=== PATIENT | male | born 1960 | race Caucasian/White ===

== ENCOUNTER 2022-08-05 09:32 | Day surgery (SDC) | payer OTHER, SELFPAY ==
[2022-05-23 11:13] VITALS: BMI 23.9
[2022-07-23 09:17] VITALS: BMI 23.8
--- NOTE | 2022-07-23 09:18 | PC.NURSE ---
DISCUSSED NO SOLID FOODS DAY BEFORE SURGERY, Friday08/04/22. PT STATED THE PAPERWORK FROM DR LANDEROS'S OFFICE SAID STARTING AT 1500. EXPLAINED SEVERAL TIMES THE PREP STARTS AT 1500, BUT NO SOLID FOODS ON THE DAY BEFORE PROCEDURE. ALSO DISCUSSED HIS DIABETIC MEDS AND CHECKING BLOOD SUGARS. NO DIABETIC MEDS DOS. INSTRUCTED PT SEVERAL TIMES TO CALL DR BROWN OFFICE WITH FURTHER QUESTIONS REGARDING PREP. PT VERBALIZED UNDERSTANDING.
--- NOTE | 2022-08-02 13:02 | WPDANESEPPF ---
Anes - Initial Pre Proc Eval Procedure: Operation Date: 08/05/22 11:30 Proposed Procedures p Screening Colonoscopy - Jordi Fagan MD Date/Time: 08/02/22 13:02 Surgeon: Jordi Fagan MD Pre Op Diagnosis: Neoplasm Screening Patient Data Age: 62 Gender: M Height: 1.75 m Weight: 73 kg Allergies Allergy/AdvReac Type Severity Reaction Status Date / Time No Known Allergies Allergy Verified 08/05/22 10:18 Home Medications Medication Instructions Recorded Confirmed Type sildenafil 100 mg tablet See Rx Instructions .Route 03/19/22 08/05/22 Rx .COMPLEX #30 tabs blood sugar diagnostic (OneTouch #300 ea 06/26/22 08/05/22 Rx Verio test strips) insulin glargine-yfgn 100 unit/mL 14 unit (0.14 mL) subcut QPM 90 06/26/22 08/05/22 Rx (3 mL) subcutaneous pen (Semglee days #15 mL (insulin glargine-yfgn) Pen) insulin lispro 100 unit/mL See Rx Instructions subcut BID 90 06/26/22 08/05/22 Rx subcutaneous pen (Humalog KwikPen days #5 syringes (U-100) Insulin) lancets 33 gauge (OneTouch Delica #300 ea 06/26/22 08/05/22 Rx Lancets) metformin 500 mg tablet,extended 1,000 mg PO BID 90 days #360 tabs 06/26/22 08/05/22 Rx release 24 hr pen needle, diabetic 32 gauge x #300 ea 06/26/22 08/05/22 Rx 5/32 (BD Marybeth 2nd Gen Pen Needle) ibuprofen 200 mg tablet 200 mg PO Q6H PRN JOINT PAIN 07/23/22 08/05/22 History Patient hx anesthesia problems: none Family hx anesthesia problems: none Results Review: All pre-operative results and documents have been reviewed as part of the pre-operative evaluation. [facility] Past Medical History Medical History Body mass index (BMI) 24.0-24.9, adult Controlled diabetes mellitus with hyperglycemia, without long-term current use of insulin Dyslipidemia Erectile dysfunction Surgical History Surgical History History of arthroscopy of left shoulder 2015 - labral tear repair History of hip replacement (~08/2017) right History of left hip replacement (~08/30/21) Family History Family History Other Diabetes mellitus Family history of cardiovascular disease Family history of coronary artery disease Hypertension Social History Social History Smoking status: Never smoker Alcohol intake: current Drinks per week: 2 Substance use: never Substance use type: does not use Living arrangements: alone Additional living arrangements comments: Daughter Occupation/Education: occupation Gender identity (if verbalized by the patient): Male Spiritual care concerns: No Anes - Eval Final PreProcedure Day of Procedure 08/02/22 13:02 Patient weight: normal Heart: regular rate and rhythm Lungs: clear to auscultation and normal air movement Airway: Mallampati scale class II Neurological: alert and oriented Last oral intake: >/= 8 hours ASA classification: III Emergent: no Anesthetic plan: proceed Anesthesia type and monitoring: general GIVS and standard monitoring Results Review: All pre-operative results and documents have been reviewed as part of the pre-operative evaluation. Informed Consent: The patient's anesthetic plan and its attendant risks and benefits were discussed with the patient/family/POA. Questions were solicited and answers provided to the satisfaction of the patient/family/POA.
[2022-08-05 10:15] VITALS: BP 131/90; PULSE 77; RESP 20; TEMP 36.5; O2SAT 100
[2022-08-05] MEDS: LACTATED RINGERS 1,000 ML 150 ML IV CONT (10:35)
[2022-08-05 10:36] LABS: Glucose Point of Care 170 mg/dl (65-105)
--- NOTE | 2022-08-05 10:47 | PM.HPGS ---
History of Present Illness History of Present Illness Consent: Risks, benefits, and alternatives have been discussed and questions answered. Patient agrees to proceed with procedure. Chief complaint: Neoplasm Screening Narrative: Gareth Landaverde is a 62 year old male here for first screening colonoscopy Review of Systems Constitutional: Constitutional: Denies headache(s) and Denies weakness Eyes: Eyes: Denies blurry vision ENT: Reports Normal hearing present, Denies headache(s) and Denies neck pain Cardiovascular: Cardiovascular: Denies chest pain and Denies dyspnea Respiratory: Respiratory: Denies dyspnea Gastrointestinal: Gastrointestinal: Reports no additional gastrointestinal complaints Genitourinary: Genitourinary: Denies dysuria Musculoskeletal: Musculoskeletal: Denies neck pain Integumentary/Breasts: Skin/Breast: Denies dry skin Neurologic: Reports Normal hearing present, Denies headache(s) and Denies weakness Psychiatric: Psychiatric: Denies anxiety Endocrine: Endocrine: Denies change in body appearance Hematologic/Lymphatic: Hematologic/Lymphatic: Denies easy bleeding Allergic/Immunologic: Allergic/Immunologic: Denies urticaria [facility] Past Medical History Medical History (Updated 08/05/22 @ 10:48 by Jordi Fagan MD) Body mass index (BMI) 24.0-24.9, adult Colon cancer screening Controlled diabetes mellitus with hyperglycemia, without long-term current use of insulin Dyslipidemia Erectile dysfunction Surgical History Surgical History History of arthroscopy of left shoulder 2015 - labral tear repair History of hip replacement (~08/2017) right History of left hip replacement (~08/30/21) Family History Family History Other Diabetes mellitus Family history of cardiovascular disease Family history of coronary artery disease Hypertension Social History Social History Smoking status: Never smoker Alcohol intake: current Drinks per week: 2 Substance use: never Substance use type: does not use Living arrangements: alone Additional living arrangements comments: Daughter Occupation/Education: occupation Gender identity (if verbalized by the patient): Male Spiritual care concerns: No Meds Home Medications and Allergies Home Medications Medication Instructions Recorded Confirmed Type sildenafil 100 mg tablet See Rx Instructions .Route 03/19/22 08/05/22 Rx .COMPLEX #30 tabs blood sugar diagnostic (OneTouch #300 ea 06/26/22 08/05/22 Rx Verio test strips) insulin glargine-yfgn 100 unit/mL 14 unit (0.14 mL) subcut QPM 90 06/26/22 08/05/22 Rx (3 mL) subcutaneous pen (Semgl days #15 mL (insulin glargine-yfgn) Pen) insulin lispro 100 unit/mL See Rx Instructions subcut BID 90 06/26/22 08/05/22 Rx subcutaneous pen (Humalog KwikPen days #5 syringes (U-100) Insulin) lancets 33 gauge (OneTouch Delica #300 ea 06/26/22 08/05/22 Rx Lancets) metformin 500 mg tablet,extended 1,000 mg PO BID 90 days #360 tabs 06/26/22 08/05/22 Rx release 24 hr pen needle, diabetic 32 gauge x #300 ea 06/26/22 08/05/22 Rx 5/32 (BD Marybeth 2nd Gen Pen Needle) ibuprofen 200 mg tablet 200 mg PO Q6H PRN JOINT PAIN 07/23/22 08/05/22 History Allergies Allergy/AdvReac Type Severity Reaction Status Date / Time No Known Allergies Allergy Verified 08/05/22 10:18 Vital Signs Vital Signs - 24 hr 08/05/22 10:15 Temperature 97.7 F Pulse Rate 77 Respiratory Rate 20 Blood Pressure 131/90 Pulse Oximetry 100 Oxygen Delivery Room Air Exam Const: General: comfortable and no acute distress HENMT: Face/Nose/Sinus: Normal nares present Eyes: General: appearance normal, both eyes and all related structures Neck: Neck: no JVD Resp: Auscultation: clear to auscultation
[2022-08-05 11:09] VITALS: BP 110/74; PULSE 72; RESP 16; O2SAT 97
[2022-08-05 11:19] VITALS: BP 123/77; PULSE 62; RESP 18; O2SAT 100
[2022-08-05 11:29] VITALS: BP 136/86; PULSE 62; RESP 16; O2SAT 99
--- NOTE | 2022-08-05 11:54 | SUR.PHASEII ---
1145; PT AWAKE AND ALERT. EATING AND DRINKING. DENIES PAIN. ASKING TO GO HOME.
--- NOTE | 2022-08-05 12:54 | WPDANESPN ---
Anes - Prog Note Post-Op Date/Time: 08/05/22 12:54 Cardiovascular status: normal Respiratory status: normal Airway patency: baseline Mental status: baseline Post-Op hydration status: normal Vital Signs: Last Vital Signs Temp 36.5 C 08/05/22 10:15 Pulse 62 08/05/22 11:29 Resp 16 08/05/22 11:29 BP 136/86 08/05/22 11:29 Pulse Ox 99 08/05/22 11:29 O2 Del Method Room Air 08/05/22 11:29 Pain Score (VAS): 0 I/O: Intake & Output 08/04/22 08/05/22 08/05/22 23:59 07:59 15:59 Intake Total 400 Balance 400 08/05/22 10:31 POC Capillary Glucose 170 H Post-procedural complaints: none Patient Feedback: Patient satisfied with anesthetic care. Other Findings: Patient vital signs back to baseline. Patient denies nausea and vomiting. Patient's pain under control. Patient OK for discharge.
== END 2022-08-05 11:57 | disposition home or self-care (01) ==
PROVIDERS: PCP Family Medicine; Visit Provider Internal Medicine Gastroenterology
PROC: 0DJD8ZZ Inspection of Lower Intestinal Tract, Via Natural or Artificial Opening Endoscopic (ICD-10-PCS; CPT 45378; principal; 2022-08-05 11:30)
DX: Z12.11 Encounter for screening for malignant neoplasm of colon (principal)
CPT/HCPCS: 45378

== ENCOUNTER 2024-09-28 12:45 | Outpatient (CLI) | payer OTHER, SELFPAY ==
--- NOTE | 2024-09-28 13:01 | ECG_ITS ---
Test Date: 2024-09-28 13:12:14 Measurements Intervals Mobile Rate: 66 P: 28 MI: 141 QRS: -19 QRSD: 95 T: 25 QT: 396 QTc: 415 Interpretive Statements SINUS RHYTHM NORMAL ECG No previous ECG available for comparison Electronically Signed On 09-29-2024 12:08:51 CDT by Donte Varghese M.D.
--- OUTSIDE RECORDS SUMMARY | 2024-09-28 14:02 | XMS_ITS | Encounter Summary ---
Author Organization [facility] Care Team Providers Care Herbicide Sprayer Name Role Phone Rosalva Martinez MD Primary Care Provider Encounter Details Date Type Department Care Team (Latest Contact Info) Description 04/22/2018 Orders Only [facility] CLINCONV ProviderSamina MD [address] [place] [id number] Social History Tobacco Use Types Packs/Day Years Used Date Smoking Tobacco: Never Assessed Sex and Gender Information Value Date Recorded Sex Assigned at Not on file Legal Sex Male 7:45 PM ESTIMATOR AND DRAFTER Gender Identity Not on file Sexual Orientation Not on file documented as of this encounter Plan of Treatment Not on file documented as of this encounter Procedures Procedure Name Priority Date/Time Associated Diagnosis Comments PROCEDURE - RESULT 04/22/2018 12 :00 AM CDT documented in this encounter Results * PROCEDURE - RESULT (04/22/2018 12:00 AM CDT) Narrative 04/22/2018 12:00 AM CDT Ordered by an unspecified provider. Historical Provider Final Res ult documented in this encounter Visit Diagnoses Not on filedocumented in this encounter Additional Health Concerns Infection Onset Date Last Indicated Resolved Time COVID19 2021 2021 07/30/2021 3:05 AM ESTIMATOR AND DRAFTER COVID: Recovered Comment:Added based on recent COVID infection. Patient meets definition for isolation discontinuation 07/30/2021 08/19/202108/3008/30/2021 8:2 0 AM ESTIMATOR AND DRAFTER documented as of this encounter Care Teams Herbicide Sprayer Relationship Specialty Start Date End Date Rosalva Martinez MD PCP - General Family Practice 02/12/19 documented as of this encounter
--- OUTSIDE RECORDS SUMMARY | 2024-09-28 14:03 | XMS_ITS | Clinical Summary ---
Author Organization [facility] Address [address] [place] [address] Care Team Providers Care Computer Builder Name Role Phone Rosalva Martinez MD Primary Care Provider Allergies No known active allergies Medications LANTUS 100 unit/mL (3 mL) pen for injection Inject 15 Units under the skin nightly 1 Active HumaLOG 100 unit/mL pen for injection Inject 8 Units under the skin daily before breakfast 1 Active metFORMIN XR (GLUCOPHAGE XR) 500 mg 24 hr tablet Take 500 mg by mouth 2 (two) times a day 1 Active sildenafiL (VIAGRA) 100 mg tablet Take 100 mg by mouth as needed 1 Active atorvastatin (LIPITOR) 20 mg tablet Take 20 mg by mouth daily 1 Active naproxen (ALEVE) 220 mg tablet Take 440 mg by mouth every 8 (eight) hours as needed Active insulin lispro (HumaLOG, ADMELOG) 100 unit/mL vial for injection Inject 10 Units under the skin daily before dinner Active apixaban (ELIQUIS) 2.5 mg tabletIndication s:VTE Prophylaxis Take 1 tablet (2.5 mg total) by mouth 2 (two) times a day 20 tablet 2 Active Additional Information Patient not taking.Reported on 11/21/2021 HYDROcodone-acet aminophen (NORCO) 5-325 mg per tabletIndication s:Pain Take 1 tablet by mouth every 4 (four) hours as needed for pain 40 tablet 2 Active Active Problems Problem Noted Date Diagnosed Date S/P total left hip arthroplasty 08/30/2021 Primary osteoarthritis of left hip 04/03/2021 Overview (04/03/2021): Added automatically from request for surgery [id number] Surgical History Surgery Date Site/Laterality Comments JOINT REPLACEMENT R THR 2018 SHOULDER ARTHROSCOPY for labrum tear; left; 2014 Medical History Medical History Date Comments Osteoarthritis Hypercholesteremia Wears glasses reading Erectile dysfunction Type 2 diabetes mellitus (HCC) History of 2019 novel campbell virus disease (COVID-19) 2021 +covid results patient state s no symptoms no illness was noted Social History Tobacco Use Types Packs/Day Years Used Date Smoking Tobacco: Never Smokeless Tobacco: Never AUDIT-C Answer Date Recorded Q1: How often do you have a drink containing alc ohol? Never 08/30/2021 Q2: How many drinks containi ng alcohol do you have on a typical day when you are drinking? 1 or 2 08/30/2021 Q3: How often do you have six or more drinks on one occasion? Never 08/30/2021 Sex and Gender Information Value Date Recorded Sex Assigned at Not on file Legal Sex Male 7:45 PM WATCH PARTS GRINDER Gender Identity Not on file Sexual Orientation Not on file Obstetrics History Last Filed Vital Signs Vital Sign Reading Time Taken Comments Blood Pressure 111/65 09/01/2021 12:09 PM WATCH PARTS GRINDER Pulse 98 09/01/2021 12:09 PM WATCH PARTS GRINDER Temperature 37 C (98.6 F) 09/01/2021 12:09 PM WATCH PARTS GRINDER Respiratory Rate 17 09/01/2021 12:09 PM WATCH PARTS GRINDER Oxygen Saturation 96% 09/01/2021 12:09 PM WATCH PARTS GRINDER Inhaled Oxygen Concentration - - Weight 70.8 kg (156 lb) 11/21/2021 10:18 AM CDT Height 175.3 cm (5' 9 ) 11/21/2021 10:18 AM CDT Body Mass Index 23.04 11/21/2021 10:18 AM CDT Plan of Treatment Health Maintenance Due Date Last Done Comments Colon Cancer Screening-Colonoscopy 1961 Depression Screening 1961 Hepatitis C Screening 1961 Prostate Cancer Screening-PSA 1961 DTaP/Tdap/Td Vaccine (1 - Tdap) 1972 Hepatitis B Screening 1979 Regular Well Visit/Exam 18-64 1979 Zoster Vaccine (1 of 2) 2011 Covid-19 Vaccine (4 - 2023-2 5 season) 2024 05/30/2021, 09/13/2020, 08/23/2020 Influenza Vaccine (#1) 2024 Pneumococcal vaccine <65 Aged Out No longer eligible based on patient's age to complete this topic Medical Devices Implanted Type Area Telephone Sales Agent Device Identifier Shelf Expiration Date Model / Serial / Lot Hip Right: Hip [employer] [id number] G7 52mm Limit Hole Hip E Hemisphere Shell Acetabular Pps - [id number] Implanted:Qty: 1 on 08/30/2021 by Nicho Moore MD at [facility] Left: Hip [employer] [id number] 02/14/2031 [id number] / / [id number] [employer] [id number] Liner Hip G7 Longevity High Wall 32mm E - [id number] Implanted:Qty: 1 on 08/30/2021 by Nicho Moore MD at [facility] Left: Hip [employer] [id number] 10/17/2025 [id number] / / [id number] [employer] [id number] Echo Bi-Metric 9mm 125mm Noncollar Reduce Proximal Profile Press - [id number] Implanted:Qty: 1 on 08/30/2021 by Nicho Moore MD at [facility] Left: Hip [employer] [id number] 12/06/2030 [id number] / / [id number] [employer] 650-1162 G7 32mm Type 1 Modular Hip Acetabular 0mm Offset Head Femoral - [id number] Implanted:Qty: 1 on 08/30/2021 by Nicho Moore MD at [facility] Left: Hip [employer] 650-1162 / / [id number] Insurance [facility] CHOICE PLUS [facility] CHOICE PLUS Advance Directives For more information, please contact: [phone] * Full Code (Latest Code Status on File) Date Activated Date Inactivated Comments 08/30/2021 2:57 PM 09/01/2021 6:23 PM Care Teams Computer Builder Relationship Specialty Start Date End Date Rosalva Martinez MD PCP - General Family Practice 02/12/19
--- OUTSIDE RECORDS SUMMARY | 2024-09-28 14:03 | XMS_ITS | Referral Summary ---
Author Organization [facility] at the Medical Office Building Address [address] [place] [address] Care Team Providers Care Public Housing Manager Name Role Phone Rosalva Martinez MD Primary [...] hours as needed for pain 40 tablet Active Active Problems Problem Noted Date Diagnosed Date S/P total left hip arthroplasty 08/30/2021 Primary osteoarthritis of left hip 04/03/2021 Overview (04/03/2021): Added automatically from request for surgery [id number] Social History Tobacco Use Types Packs/Day Years [...] on file Legal Sex Male 7:45 PM FREIGHT AGENT Gender Identity Not on file Sexual Orientation Not on file Last Filed Vital Signs Vital Sign Reading Time Taken Comments Blood Pressure 111/65 09/01/2021 12:09 PM FREIGHT AGENT Pulse 98 09/01/2021 12:09 PM FREIGHT AGENT Temperature 37 C (98.6 F) 09/01/2021 12:09 PM FREIGHT AGENT Respiratory Rate 17 09/01/2021 12:09 PM FREIGHT AGENT Oxygen Saturation 96% 09/01/2021 12:09 PM FREIGHT AGENT Inhaled Oxygen Concentration - - Weight 70.8 kg (156 lb) 11/21/2021 10:18 AM CDT Height 175.3 cm (5' 9 ) 11/21/2021 10:18 AM CDT Body Mass Index 23.04 11/21/2021 10:18 AM CDT Plan of Treatment Not on file Medical Devices Implanted Type Area Quality Control Manager Device Identifier Shelf Expiration Date Model / Serial / Lot Hip Right: Hip [employer] [id number] 52mm Limit Hole Hip E Hemisphere Shell Acetabular Pps - [id number] Implanted:Qty: 1 on 08/30/2021 by Nicho Moore MD at [facility] Left: Hip [employer] [id number] 02/14/2031 [id number] / / [id number] [employer] Liner Hip G7 Longevity High Wall 32mm E - [id number] Implanted:Qty: 1 on 08/30/2021 by Nicho Moore MD at [facility] Left: Hip [employer] [id number] 10/17/[id number] / / [id number] [employer] [id number] Echo Bi-Metric 9mm 125mm Noncollar Reduce Proximal Profile Press - [id number] Implanted:Qty: 1 on 08/30/2021 by Nicho Moore MD at [facility] Left: Hip [employer] [id number] 12/06/2030 [id number] / / [id number] [employer] 650-1162 G7 32mm Type 1 Modular Hip Acetabular 0mm Offset Head Femoral - [id number] Implanted:Qty: 1 on 08/30/2021 by Nicho Moore MD at [facility] Left: Hip [employer] 650-1162 / / [id number] Insurance [facility] CHOICE PLUS [facility] CHOICE PLUS [place] [id number] Advance Directives For more information, please contact: [phone] * Full Code (Latest Code Status on File) Date Activated Date Inactivated Comments 08/30/2021 2:57 PM 09/01/2021 6:23 PM Care Teams Public Housing Manager Relationship Specialty Start Date End Date Rosalva Martinez MD PCP - General Family Practice 02/12/19
--- OUTSIDE RECORDS SUMMARY | 2024-09-28 14:03 | XMS_ITS | Encounter Summary ---
Author Organization [facility] Care Team Providers Care Analysis Analyst Name Role Phone Rosalva Martinez MD Primary Care Provider Encounter Details Date Type Department Care Team (Latest Contact Info) Description 03/31/2018 Orders Only [facility] CLINCONV ProviderSamina MD [address] [place] [address] Social History Tobacco Use Types Packs/Day Years Used Date Smoking Tobacco: Never Assessed Sex and Gender Information Value Date Recorded Sex Assigned at Not on file Legal Sex Male 7:45 PM BIOINFORMATICIAN Gender Identity Not on file Sexual Orientation Not on file documented as of this encounter Plan of Treatment Not on file documented as of this encounter Procedures Procedure Name Priority Date/Time Associated Diagnosis Comments PROCEDURE - RESULT 03/31/2018 12 :00 AM CDT documented in this encounter Results * PROCEDURE - RESULT (03/31/2018 12:00 AM CDT) Narrative 03/31/2018 12:00 AM CDT Ordered by an unspecified provider. Historical Provider Final Res ult documented in this encounter Visit Diagnoses Not on filedocumented in this encounter Additional Health Concerns Infection Onset Date Last Indicated Resolved Time COVID19 2021 2021 07/30/2021 3:05 AM BIOINFORMATICIAN COVID: Recovered Comment:Added based on recent COVID infection. Patient meets definition for isolation discontinuation 07/30/2021 08/19/202108/3008/30/2021 8:2 0 AM BIOINFORMATICIAN documented as of this encounter Care Teams Analysis Analyst Relationship Specialty Start Date End Date Rosalva Martinez MD PCP - General Family Practice 02/12/19 documented as of this encounter
--- OUTSIDE RECORDS SUMMARY | 2024-09-28 14:03 | XMS_ITS | Encounter Summary ---
Author Organization [facility] Facility Care Team Providers Care Top Loader Name Role Phone Rosalva Martinez MD Primary Care Provider Encounter Details Date Type Department Care Team (Latest Contact Info) Description 02/27/2018 Orders Only [facility] CLINCONV ProviderSamina MD [address] [place] [address] Social History Tobacco Use Types Packs/Day Years Used Date Smoking Tobacco: Never Assessed Sex and Gender Information Value Date Recorded Sex Assigned at Not on file Legal Sex Male 7:45 PM DRIVER LICENSE EXAMINER Gender Identity Not on file Sexual Orientation Not on file documented as of this encounter Plan of Treatment Not on file documented as of this encounter Procedures Procedure Name Priority Date/Time Associated Diagnosis Comments PROCEDURE - RESULT 02/27/2018 12 :00 AM CDT documented in this encounter Results * PROCEDURE - RESULT (02/27/2018 12:00 AM CDT) Narrative 02/27/2018 12:00 AM CDT Ordered by an unspecified provider. Historical Provider Final Res ult documented in this encounter Visit Diagnoses Not on filedocumented in this encounter Additional Health Concerns Infection Onset Date Last Indicated Resolved Time COVID19 2021 2021 07/30/2021 3:05 AM DRIVER LICENSE EXAMINER COVID: Recovered Comment:Added based on recent COVID infection. Patient meets definition for isolation discontinuation 07/30/2021 08/19/202108/3008/30/2021 8:2 0 AM DRIVER LICENSE EXAMINER documented as of this encounter Care Teams Top Loader Relationship Specialty Start Date End Date Rosalva Martinez MD PCP - General Family Practice 02/12/19 documented as of this encounter
== END 2024-09-28 12:46 | disposition home or self-care (01) ==
PROVIDERS: PCP Family Medicine; Visit Provider Nurse Practitioner Family
DX: Z01.818 Encounter for other preprocedural examination (principal)
CPT/HCPCS: 93005